=== PATIENT | female | born 1980 | race Caucasian/White ===

== ENCOUNTER → 2016-12-08 | Outpatient (CLI) | payer OTHER ==
[~2016-12-08] MED LIST: KEPPRA500 M1 PO; MIRENA
--- NOTE | ~2016-12-08 | EE ---
Unit #: [id number] #: [id number] Patient: BEN COLE [id number] [address] [address] [id number] O MR#: [id number] NAME: BEN COLE : 1980 SEX: F STUDY DATE/TIME: 12/08/2016 UNIT: CEEG ROOM: STUDY DESCRIPTION: EEG Attending Physician: Javed Nickerson II., M.D. Referring Physician: Javed Nickerson II., M.D. Primary Care Physician: Evelyn Winston M.D. NEURODIAGNOSTICS REPORT EXAM EEG REASON FOR STUDY Seizures. TECH [facility] TECHNICAL INFORMATION This is a routine EEG performed using the standard International 10-20 System of electrode placement. Hyperventilation was performed. Photic stimulation was also performed. REPORT Throughout the entire study, the best background rhythm seen is approximately 11 Hz. This rhythm is seen in both posterior head regions symmetrically and does attenuate to eye opening and closure. Photic stimulation was performed which did not elicit any epileptiform abnormalities. However, a good photic driving response is seen. Hyperventilation was also performed which revealed to reproduce any abnormal buildup. Throughout the entire study, there were no electrographic seizures recorded nor were there any independent epileptiform abnormalities seen. There was no sleep recorded during the EEG. INTERPRETATION This is a normal awake EEG. A normal EEG does not rule out the possibility of seizure disorder. Clinical correlation is advised. Dictated by... Javed Nickerson II., M.D. GWS/maritza TD: 12/10/2016 12:55 JOB #: [id number] Unit #: [id number] #: [id number] Patient: BEN COLE NEURODIAGNOSTICS REPORT Page 1 of 1 X NEURODIAGNOSTICS REPORT
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
== END | disposition home or self-care (01) ==
LOC: CEEG 08:29
DX: R56.9 Unspecified convulsions (principal); J34.89 Other specified disorders of nose and nasal sinuses
CPT/HCPCS: 70553; 95816; A9577